=== PATIENT | male | born 1955 | race Hispanic/Latino ===

== ENCOUNTER 2024-07-05 05:29 | Emergency (ER) | payer OTHER, MEDICARE ==
[~2024-07-05] VITALS: Ht 170.2 cm; Wt 84.8 kg
[2024-07-05] MEDS: LIDOCAINE 5% TOPICAL PATCH TP ONE (06:28)
[2024-07-05] MEDS: Solu-medROL 40MG VIAL IM ONE (06:28)
[2024-07-05] MEDS: KETOROLAC 30MG VIAL (30MG/ML) IM ONE (06:29)
[2024-07-05 08:33] LABS: APPEARANCE,URINE CLEAR (CLEAR); BILIRUBIN,URINE NEGATIVE (NEGATIVE); COLOR,URINE LIGHT-YELLOW (YELLOW); GLUCOSE, URINE (UA) 30 mg/dL (NEGATIVE); KETONES,URINE NEGATIVE (NEGATIVE); LEUKOCYTE ESTERASE ,URINE NEGATIVE Leu/uL (NEGATIVE); NITRATE,URINE NEGATIVE (NEGATIVE); OCCULT BLOOD,URINE NEGATIVE (NEGATIVE); PH,URINE 5.5 (5.0-8.0); PROTEIN,URINE NEGATIVE (NEGATIVE); UROBILINOGEN,URINE 0.2 mg/dL (0.2-1.0)
[2024-07-05 08:54] LABS: ADD UA MICROSCOPIC YES
[2024-07-05 08:55] LABS: MUCUS,URINE RARE LPF (None Seen); RBC,URINE 0-1 /HPF (0-1)
[2024-07-05] MEDS: MORPHINE 4 MG SYG IM ONE (09:11)
[2024-07-05] MEDS: MORPHINE 4 MG SYG ONE (09:12)
[2024-07-05] MEDS ORDERED: ACET-2079 PO (09:58)
[2024-07-05 10:08] VITALS: BP 164/92; PULSE 86; RESP 16; O2SAT 97
== END 2024-07-05 10:40 | disposition home or self-care (01) ==
LOC: EDH 05:29
DX: M54.42 Lumbago with sciatica, left side (principal); E11.9 Type 2 diabetes mellitus without complications; E78.00 Pure hypercholesterolemia, unspecified; E66.9 Obesity, unspecified; I10 Essential (primary) hypertension; Z68.30 Body mass index [BMI] 30.0-30.9, adult
CPT/HCPCS: 99285; 72131; 81001; 96372 ×3; J2919; J2270; J1885

== ENCOUNTER 2024-10-12 12:41 | Emergency (ER) | payer OTHER, MEDICARE ==
[~2024-10-12] VITALS: Ht 170.2 cm; Wt 84.8 kg
[~2024-10-12 12:41] MED LIST: ACET-2079 PO
--- NOTE | 2024-10-12 12:52 | EKG ---
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
[2024-10-12 13:17] LABS: RAPID GROUP A STREP negative (NEGATIVE)
[2024-10-12 13:25] LABS: SARS-CoV-2, RNA, NAAT NEGATIVE SARS CoV-2 (NEGATIVE)
[2024-10-12 13:27] LABS: INFLUENZA TYPE A Negative For Type A (NEGATIVE); INFLUENZA TYPE B Negative For Type B (NEGATIVE)
--- NOTE | 2024-10-12 14:23 | HMCIMG ---
CHEST 1VW REASON: COUGH COMPARISON: None. FINDINGS: There is hazy infiltrate in the right lower lobe consistent with early or mild pneumonia. Lungs are otherwise clear. Heart, mediastinum and bony thorax appear normal. There are no pleural effusions. IMPRESSION: 1. Hazy infiltrate in the right lower lobe consistent with early or mild pneumonia.
--- NOTE | 2024-10-12 14:37 | ERN ---
General Chief Complaint: Cough Stated Complaint: CHEST PRESSURE W/ COUGH Time Seen by MD: 12:43 Source: patient History of Present Illness Initial Comments Patient is a 69-year-old male coming in to be evaluated for left-sided chest pressure. Patient states that this pressure began a couple of days ago and has been getting worse. He states that the pressure waxes and wanes and usually presents with coughing and deep inspiration. Allergies: Coded Allergies: No Known Allergies (Unverified Allergy, Unknown, 07/05/24) Home Meds Active Scripts Acetaminophen with Codeine (Acetaminophen-Cod #3 Tablet) 300 Mg-30 Mg Tablet, 1 TAB PO Q6H PRN for PAIN, #10 TAB 0 Refills Prov:AB PINO MD 07/05/24 Past Medical History Past Medical History: Diabetes-Type II, High Cholesterol, Hypertension Past Surgical History: Other Surgical History Other: LEFT LEG ROS Dictation CONSTITUTIONAL: No chills, no fever, no weakness, no diaphoresis, no malaise. HEAD/FACE: No signs of trauma. EENT: No eye pain, no blurred vision, no tearing, no double vision, no ear pain, no ear discharge, no nose pain, no nasal congestion, no throat pain, no throat swelling, no mouth pain. RESPIRATORY: No cough, no orthopnea, no SOB, no stridor, no wheezing. CARDIOVASCULAR: No chest pain, no edema, no palpitations, no syncope. GASTROINTESTINAL/ABDOMINAL: No abdominal pain, no constipation, no diarrhea, no nausea, no vomiting. GENITOURINARY: No abnormal discharge, no dysuria, no frequent urination, no hematuria. No complaints of pain in the genitals. MUSCULOSKELETAL: No back pain, no gout, no joint pain, no joint swelling, no muscle pain, no muscle stiffness, no neck pain. INTEGUMENTARY: No change in color, no change in hair/nails, no dryness, no lesion, no lumps, no rash. NEUROLOGICAL/PSYCH: No anxiety, not depressed, no emotional problem, no headache, no numbness, no pre-existing deficit, no history of seizures, no tremors, no weakness. HEMATOLOGIC/LYMPHATIC: Not anemic, no history of blood clots, no apparent bleeding, no bruising, glands not swollen. All Systems Negative, Except as Noted. Physical Exam Physical Exam Dictation VITAL SIGNS: Reviewed. GENERAL APPEARANCE: Alert, oriented x3, no acute distress, obese. HEAD AND FACE: Non-traumatic. EYES: PERRL, pink conjunctivas, eyelid no trauma, anterior chamber clear. EARS: Pinnas intact and no signs of trauma or erythema. Ear canals clear and no discharge. TMs no erythema. NOSE: No discharge, no bleeding. OROPHARYNX: Mouth normal, teeth no caries, tongue pink. Pharynx clear, no erythema. Tonsils no exudates, no abscesses noted. Mucous membrane moist. NECK: Supple, non-tender, no thyromegaly, no masses, no JVD, no bruits. BREAST: Deferred. CHEST: No tenderness, no crepitus, no paradoxical movement, no retractions. LUNGS: Clear, well-ventilated, symmetric, no rales, no wheezing, no rhonchi, no stridor, good breath sounds bilaterally. HEART: Regular rate, regular rhythm, no murmur, no gallops. VASCULAR: No peripheral edema. ABDOMEN: Soft, positive bowel sounds, nondistended, no guarding, nontender, no rebound, no masses no hepatomegaly, no splenomegaly, no Beasley's sign, no hernias. RECTAL: Deferred. GENITAL: Deferred. NEUROLOGICAL: Normal speech, gross motor function intact, gross sensory function intact. MUSCULOSKELETAL: Neck nontender, full range of motion, back nontender, full range of motion. EXTREMITIES: Nontender, full range of motion. SKIN: Color pink, dry, no turgor, no rash, no lacerations, no abrasions, no contusions. LYMPHATICS: Deferred. Results Laboratory and Microbiology Lab and Micro Result Laboratory Tests Test 10/12/24 12:52 10/12/24 14:38 10/12/24 14:55 Influenza Type A Antigen Negative For Type A Influenza Type B Antigen Negative For Type B SARS-CoV-2, RNA, NAAT NEGATIVE SARS CoV-2 Group A Streptococcus Rapid negative (NEGATIVE) White Blood Count 12.3 K/uL (4.8-10.8) H Red Blood Count 4.24 MIL/uL (4.50-6.20) L Hemoglobin 13.5 g/dL (14.0-18.0) L Hematocrit 40.1 % (42-54) L Mean Corpuscular Volume 94.6 fL (79-99) Mean Corpuscular Hemoglobin 31.8 pg (27.0-33.0) Mean Corpuscular Hemoglobin Concent 33.7 g/dL (32.0-36.0) Red Cell Distribution Width 13.2 % (11.0-15.5) Platelet Count 307 K/uL (130-400) Mean Platelet Volume 9.0 fL (7.5-10.5) Immature Granulocyte % (Auto) 0.5 % (0-1) Neutrophils (%) (Auto) 72.5 % (40.0-77.0) Lymphocytes (%) (Auto) 16.3 % (21.0-51.0) L Monocytes (%) (Auto) 9.0 % (3.0-13.0) Eosinophils (%) (Auto) 1.5 % (0.0-8.0) Basophils (%) (Auto) 0.2 % (0.0-5.0) Neutrophils # (Auto) 8.9 K/uL (1.8-7.7) H Lymphocytes # (Auto) 2.0 K/uL (1.0-4.8) Monocytes # (Auto) 1.1 K/uL (0.1-1.0) H Eosinophils # (Auto) 0.19 K/uL (0.00-0.70) Basophils # (Auto) 0.03 K/uL (0.00-0.20) Absolute Immature Granulocyte (auto 0.06 K/uL (0-1) Nucleated Red Blood Cells 0.0 % (0.0-0.19) Prothrombin Time 10.4 SEC (9.6-11.6) Prothromb Time International Ratio 0.96 (0.85-1.15) Activated Partial Thromboplast Time 26.8 SEC (26.3-35.5) Sodium Level 141 mmol/L (136-145) Potassium Level 3.5 mmol/L (3.5-5.1) Chloride Level 104 mmol/L (101-111) Carbon Dioxide Level 30 mmol/L (21-32) Blood Urea Nitrogen 13 mg/dL (7-18) Creatinine 0.7 mg/dL (0.5-1.3) Glomerular Filtration Rate Calc 101 mL/min (>90) Random Glucose 82 mg/dL (70-105) Total Calcium 9.2 mg/dL (8.5-10.1) Magnesium Level 2.20 mg/dL (1.80-2.40) Total Creatine Kinase 38 U/L (21-232) Troponin I High Sensitivity 6 ng/L (4-75) B-Type Natriuretic Peptide 98 pg/mL (0-100) Urine Color LIGHT-YELLOW (YELLOW) Urine Appearance CLEAR (CLEAR) Urine pH 5.5 (5.0-8.0) Urine Specific [place] 1.013 (1.001-1.031) Urine Protein NEGATIVE mg/dL (NEGATIVE) Urine Glucose (UA) NEGATIVE mg/dL (NEGATIVE) Urine Ketones NEGATIVE mg/dL (NEGATIVE) Urine Occult Blood NEGATIVE (NEGATIVE) Urine Nitrate NEGATIVE (NEGATIVE) Urine Bilirubin NEGATIVE mg/dL (NEGATIVE) Urine Urobilinogen 0.2 mg/dL (0.2-1.0) Urine Leukocyte Esterase NEGATIVE Lloyd/uL Urine RBC None /HPF (0-1) Urine WBC 0-1 /HPF (0-1) Urine Squamous Epithelial Cells RARE /HPF (0-2) Urine Bacteria None /HPF (None Seen) Labs Reviewed?: Yes EKG/XRAY/US/CT/MRI EKG Comment 10/12/2024 time 12:49 p.m. Ventricular rate [address] wave elevation or depression [place] 140 X-RAY Comment [address] [address] IMAGING REPORT Signed PATIENT: BARRY CARVALHO MR#: [id number] : 1955 SEX: M AGE: 69 LOCATION: ED ORDER STATUS: REG ER REPORT#: [id number] SERVICE [id number] REASON: COUGH ORDERING PHYSICIAN: FRED FRIEDMAN MD PROCEDURE: CXR1VW - CHEST 1VW CHEST 1VW REASON: COUGH COMPARISON: None. FINDINGS: There is hazy infiltrate in the right lower lobe consistent with early or mild pneumonia. Lungs are otherwise clear. Heart, mediastinum and bony thorax appear normal. There are no pleural effusions. IMPRESSION: 1. Hazy infiltrate in the right lower lobe consistent with early or mild pneumonia. DICTATED BY: MONA ASHBY MD DATE: 11/25/24 1421 ELECTRONICALLY SIGNED BY: MONA ASHBY MD DATE: 10/12/24 142 MDM MDM: Differential diagnosis: Left lung pneumonia, URI, early pneumonia Patient is a 69-year-old male coming in to be evaluated for intermittent left chest discomfort. On x-ray there is a mild infiltrates on the left side consistent with early pneumonia. Patient will be discharged with oral antibiotics as well as breathing treatments. Based on the curb 65 score patient is a good candidate for outpatient treatment. ED Course Orders Procedure Category Date Status Time Covid Rna Naat LAB 10/12/24 Complete 12:45 Influenza Type A & B, LAB 10/12/24 Complete Rapid 12:45 Rapid (Group A Strep) LAB 10/12/24 Complete 12:45 12 Lead Ekg Tracing- EKG 10/12/24 Complete Technical 12:45 Chest 1vw RAD 10/12/24 Resulted 12:45 Cbc With Differential LAB 10/12/24 Complete 14:22 Prothrombin Time With LAB 10/12/24 Complete INR 14:22 B-Type Natriuretic LAB 10/12/24 Complete Peptide 14:22 12 Lead Ekg Tracing- EKG 10/12/24 Logged Technical 14:22 Magnesium LAB 10/12/24 Complete 14:22 Creatine Kinase, Total LAB 10/12/24 Complete 14:22 Troponin I High LAB 10/12/24 Complete Sensitivity 14:22 Urinalysis Profile LAB 10/12/24 Complete 14:22 Partial LAB 10/12/24 Complete Thromboplastin Time 14:22 Basic Metabolic Panel LAB 10/12/24 Complete 14:22 Pantoprazole 40mg Inj PHA 10/12/24 Complete (Protonix 40mg Inj 14:30 Ceftriaxone 1g Vial PHA 10/12/24 Complete (Rocephine 1g Inj) 15:30 Azithromycin 500mg+Ns PHA 10/12/24 In Process 250ml (Azithromyci 15:19 Ipratropium/Albuterol PHA 10/12/24 Complete Neb (Duoneb) 15:30 Methylprednisolone PHA 10/12/24 Complete Succ 125mg (Solu-Medr 15:30 Current Medications Medications (Trade) Dose Ordered Sig/Vero Route PRN Reason Start Time Stop Time Status Last Admin Dose Admin Albuterol (DUOneb) 1 udvial ONCE ONCE IH 10/12/24 15:30 10/12/24 15:31 DC Azithromycin 250 ml @ 250 mls/hr Q24H STAT IVPB 10/12/24 15:19 10/12/24 16:18 Ceftriaxone Sodium (ROCEphine 1G INJ) 1 gm ONCE ONCE IVPB 10/12/24 15:30 10/12/24 15:31 DC Methylprednisolone Sodium Succinate (Solu-medROL 125MG) 125 mg ONCE ONCE IVP 10/12/24 15:30 10/12/24 15:31 DC Pantoprazole Sodium (PROTonix 40MG INJ) 40 mg ONCE ONCE IVP 10/12/24 14:30 10/12/24 14:31 DC 10/12/24 14:50 Vital Signs Date Time Temp Pulse Resp B/P (MAP) Pulse Ox O2 Delivery O2 Flow Rate FiO2 10/12/24 14:24 98.6 89 16 129/59 98 Room Air* 0 21 10/12/24 12:43 98.6 89 16 129/59 97 Room Air 0 DX & DISP Disposition: Discharge Departure Impression: Primary Impression: Pneumonia Condition: Stable Scripts Prednisone (Prednisone) 5 Mg Tablet 1 TAB PO DAILY for 7 Days, #7 TAB 0 Refills Prov: FRED FRIEDMAN MD 10/12/24 Amoxicillin/Potassium Clav (Amox Tr-K Clv 875-125 mg Tab) 875 Mg-125 Mg Tablet 1 TAB PO BID for 10 Days, #20 TAB 0 Refills Prov: FRED FRIEDMAN MD 10/12/24 Albuterol Sulfate (Ventolin Hfa) 90 Mcg Hfa.aer.ad 2 PUFF IH Q4HPRN PRN for wheezing for 7 Days, #18 GM 0 Refills Prov: FRED FRIEDMAN MD 10/12/24 Additional Instructions: FOLLOW-UP WITH PRIMARY CARE PROVIDER IN 1 TO 2 DAYS. TAKE MEDICATIONS DIRECTED HERE IN THE EMERGENCY ROOM. OKAY TO CONTINUE HOME MEDICATIONS UNLESS OTHERWISE DISCUSSED DURING YOUR VISIT IN THE EMERGENCY ROOM TODAY. RETURN TO YOUR NEAREST EMERGENCY ROOM IF SYMPTOMS WORSEN OR IF THERE IS NO IMPROVEMENT. CALL 911 IF YOU NEED IMMEDIATE ASSISTANCE. TAKE TYLENOL [id number] NEEDED AND IF NO CONTRAINDICATIONS ARE PRESENT. INCREASE ORAL HYDRATION. A WOUND CULTURE OR URINE CULTURE WAS ORDERED HERE IN THE EMERGENCY ROOM DEPARTMENT PLEASE FOLLOW-UP WITH PRIMARY CARE PROVIDER AND ADVISE THEM TO GET REPEAT PORTS FROM OUR FACILITY. IF YOU HAD ANY ANJUM WRAP/SPLINTS THAT WERE APPLIED HERE, PLEASE DO NOT REMOVE THEM UNTIL YOU SEE YOUR PRIMARY CARE OR SPECIALTY. Referrals: Referrals: FIGUEROA RODRIGUEZ (PCP) Time of Disposition: 15:37 FRED FRIEDMAN MD Oct 12, 2024 14:37
[2024-10-12] MEDS: PANTOPrazole 40 MG/VIAL IVP ONE (14:50)
[2024-10-12 14:51] LABS: BASOPHILS # (AUTO) 0.03 K/uL (0.00-0.20); BASOPHILS % (AUTO) 0.2 % (0.0-5.0); EOSINOPHILS # (AUTO) 0.19 K/uL (0.00-0.70); EOSINOPHILS % (AUTO) 1.5 % (0.0-8.0); HEMATOCRIT 40.1 % (42-54); IMMATURE GRANULOCYTE ABSOLUTE 0.06 K/uL (0-1); LYMPHOCYTES % (AUTO) 16.3 % (21.0-51.0); MEAN CORPUSCULAR HEMOGLOBIN 31.8 pg (27.0-33.0); MEAN CORPUSCULAR HGB CONC 33.7 g/dL (32.0-36.0); MEAN CORPUSCULAR VOLUME 94.6 fL (79-99); MONOCYTES # (AUTO) 1.1 K/uL (0.1-1.0); NEUTROPHILS # (AUTO) 8.9 K/uL (1.8-7.7); NEUTROPHILS % (AUTO) 72.5 % (40.0-77.0); PLATELET COUNT (AUTO) 307 K/uL (130-400); RED BLOOD CELL COUNT(AUTO) 4.24 MIL/uL (4.50-6.20); RED CELL DISTRIBUTION WIDTH 13.2 % (11.0-15.5); WHITE BLOOD COUNT (AUTO) 12.3 K/uL (4.8-10.8)
[2024-10-12 15:00] LABS: CREATININE 0.7 mg/dL (0.5-1.3); POTASSIUM 3.5 mmol/L (3.5-5.1)
[2024-10-12 15:01] LABS: INR 0.96 (0.85-1.15); PROTHROMBIN TIME 10.4 SEC (9.6-11.6)
[2024-10-12 15:03] LABS: PARTIAL THROMBOPLASTIN TIME 26.8 SEC (26.3-35.5)
[2024-10-12 15:04] LABS: MAGNESIUM 2.2 mg/dL (1.80-2.40)
[2024-10-12 15:04] LABS: APPEARANCE,URINE CLEAR (CLEAR); BILIRUBIN,URINE NEGATIVE (NEGATIVE); COLOR,URINE LIGHT-YELLOW (YELLOW); GLUCOSE, URINE (UA) NEGATIVE (NEGATIVE); KETONES,URINE NEGATIVE (NEGATIVE); LEUKOCYTE ESTERASE ,URINE NEGATIVE Leu/uL (NEGATIVE); NITRATE,URINE NEGATIVE (NEGATIVE); OCCULT BLOOD,URINE NEGATIVE (NEGATIVE); PH,URINE 5.5 (5.0-8.0); PROTEIN,URINE NEGATIVE (NEGATIVE); UROBILINOGEN,URINE 0.2 mg/dL (0.2-1.0)
[2024-10-12 15:05] LABS: ADD UA MICROSCOPIC YES
[2024-10-12 15:08] LABS: MUCUS,URINE RARE LPF (None Seen); SQUAMOUS EPITHELIAL CELL,UR RARE /HPF (0-2); WBC,URINE 0-1 /HPF (0-1)
[2024-10-12 15:30] LABS: B-TYPE NATRIURETIC PEPTIDE 98 pg/mL (0-100)
[2024-10-12] MEDS: IpraTROPium/alBUTERol SULFATE 3 ML SOLUTION IH ONE (15:35)
[2024-10-12 15:37] VITALS: PULSE 84; RESP 18
[2024-10-12] MEDS ORDERED: AMOX1TAB16 PO (15:39)
[2024-10-12] MEDS ORDERED: PRED5TAB PO (15:39)
[2024-10-12] MEDS: AZITHROMYCIN 500MG+NS 250ML 250 ML IVPB STA (15:39)
[2024-10-12] MEDS ORDERED: ALBU18HF7 IH (15:39)
[2024-10-12] MEDS: cefTRIAXone 1G VIAL IVPB ONE (15:41)
[2024-10-12] MEDS: Solu-medROL 125MG VIAL IVP ONE (15:52)
[2024-10-12 17:36] VITALS: BP 159/64; PULSE 84; RESP 18; TEMP 97.5; O2SAT 98
== END 2024-10-12 17:39 | disposition home or self-care (01) ==
LOC: EDH 12:41
DX: J18.9 Pneumonia, unspecified organism (principal); E11.9 Type 2 diabetes mellitus without complications; E78.00 Pure hypercholesterolemia, unspecified; I10 Essential (primary) hypertension; Z20.822 Contact with and (suspected) exposure to COVID-19
CPT/HCPCS: 99285; 96365; 96375; 71045; 87635; 82550; 83735; 84484; 80048; 83880; 85025; 85610; 85730; 87880; 87804 ×2; 81001; 36415; 93005; 94640; J2919; J0696; J0456; J2470